=== PATIENT | male | born 1960 | race Caucasian/White ===

== ENCOUNTER 2016-10-28 12:25 | Emergency (ER) | payer BC ==
--- NOTE | 2016-10-28 13:45 | ERNOTE ---
Back Pain ER HPI Presenting Symptoms: injury/pain to back Time Seen by Provider: 10/28/16 13:31 Source: patient Exam Limitations: no limitations Immunizations: IMMUNIZATION HX Immunizations Up to Date Yes History of Influenza Vaccine No Allergies/Adverse Reactions: Allergies No Known Allergies Allergy (Unverified 10/28/16 13:04) Home Medications: HOME MEDICATIONS Cyclobenzaprine HCl [Flexeril] 10 mg PO TID PRN #30 tab 10/28/16 [Last Taken Unknown] Hydrocodone/Acetaminophen [[place] 5-325 Tablet] 1 - 2 tab PO Q6H PRN 10/28/16 [ Last Taken Unknown] Ibuprofen [Motrin] 800 mg PO QID PRN 10/28/16 [Last Taken Unknown] Narrative: Pt has pain in the left lower back. He denies injury, it is better after being warmed up/ stretched out a little. Worse when he woke up this am Timing: Reports: getting worse, intermittent Quality/Severity: Reports: moderate, severe, aching, cramping Location of pain: Reports: lower back, no radiation Activities at Onset: Reports: sleep Recent Injury?: Reports: no Possible Precipitating Factor: Reports: lifting Review of Systems - Review of Systems Constitutional: Present: no symptoms reported, decreased activity level ENT: Present: no symptoms reported Respiratory: Present: no symptoms reported Cardiology: Present: no symptoms reported Genitourinary: Present: no symptoms reported Musculoskeletal: Present: See HPI Skin: Absent: rash Neurological: Absent: weakness, numbness Endocrine: Present: no symptoms reported Hematologic/Lymphatic: Present: no symptoms reported Psych: Present: no symptoms reported All Other Systems: All systems neg except as marked - Patient's Past Medical History Patient History - Medical: Migraines Patient History - Cancer: No Hx of Cancer Patient History - Surgical Procedures: Appendectomy, T & A - Social History Living Situations: home Psych History: No pertinent hx Smoking Status: Never smoker Do you dip or chew tobacco: No Alcohol Use: none Drug Use: none - Immunizations Immunizations Up to Date: Yes History of Influenza Vaccine: No Physical Exam - Physical Exam General Appearance: Present: wd/wn, alert, no apparent distress Eye Exam: Normal inspection: bilateral Neck: Present: normal inspection Respiratory: Present: no respiratory distress, no accessory muscle use Back Exam: Present: no vertebral tenderness, decreased range of motion, muscle spasm - left quadratus Extremity Exam: Present: normal inspection, normal range of motion, no edema Neurological Exam: Present: alert, oriented, normal mood/affect, no motor/ sensory deficits Skin Exam: Present: normal color, warm/dry ED Progress - Vital Signs Patient's Vital Signs:: I have reviewed the patient's vital signs. Vital Signs: Vital Signs 10/28/16 12:59 Temperature 36.8 C Pulse Rate 82 Respiratory 16 Rate Blood Pressure 148/97 O2 Sat by Pulse 96 Oximetry - Progress/Reassessment Chief Complaint: Back Pain Departure Clinical Impression: Muscle spasm Lumbar strain Qualifiers: Encounter type: initial encounter Qualified Code(s): S39.012A - Strain of muscle, fascia and tendon of lower back, initial encounter - Departure Disposition: Home self-care Condition: Good Instructions: Back Pain, Adult, [id number], Cryotherapy Prescriptions: Cyclobenzaprine HCl [Flexeril] 10 mg PO TID PRN #30 tab PRN Reason: MUSCLE SPASMS
[2016-10-28 14:01] VITALS: BP 136/88
== END 2016-10-28 14:07 | disposition home or self-care (01) ==
LOC: ER 12:25
DX: S39.012A Strain of muscle, fascia and tendon of lower back, initial encounter (principal)